=== PATIENT | female | born 1950 | race Caucasian/White ===

== ENCOUNTER 2022-09-02 06:07 | Emergency (ER) | payer MEDICARE, MEDICAID, SELFPAY ==
--- NOTE | ~2022-09-02 | CT_ITS ---
EXAMINATION: CT HEAD WITHOUT CONTRAST CLINICAL INFORMATION: Vertigo COMPARISON: CT head from 04/14/2006 TECHNIQUE: Contiguous axial imaging was performed from the skull base to vertex without intravenous administration of contrast. This CT examination was performed using dose optimization techniques as appropriate, variously including the following: *Automated exposure control *Adjustment of mA and/or kV according to patient size (this includes techniques or standardized protocols for targeted exams where dose is matched to indication/reason for exam; i.e. extremities or head) *Use of iterative reconstruction technique DLP: 619 mGy-cm FINDINGS: There is no evidence of acute intracranial hemorrhage or territorial infarction. No abnormal mass effect or midline shift is seen. Lou to white matter differentiation is well preserved. No extra-axial fluid collections are identified. The ventricles are normal in size. There is no abnormal attenuation within the brain parenchyma. Mild nodular osseous thickening along the inner table of the right frontal bone, nonspecific. The osseous structures and soft tissues are normal. The mastoid air cells and visualized portions of the paranasal sinuses are well aerated. Vertebrobasilar atherosclerotic calcifications. CT/CT head/brain wo IV con IMPRESSION: No acute intracranial pathology.
[2022-09-02 06:13] VITALS: BP 182/83; PULSE 78; RESP 22; TEMP 36.7; O2SAT 98; BMI 27.8
[2022-09-02 06:35] LABS: MANUAL DIFF FLAG NO
[2022-09-02 06:37] LABS: Basophils Percent Auto 0.6 % (0-2); Eosinophils Absolute Auto 0.2 X10*3/uL (0.0-0.4); Eosinophils Percent Auto 2.6 % (0-4); Hematocrit 40.8 % (37.0-47.0); Hemoglobin 13.5 g/dl (12.0-16.0); Imm Gran Abs Auto 0.02 X10*3/uL (0.00-0.03); Imm Gran Pct Auto 0.3 % (0.0-0.4); Mean Corpuscular HGB Conc 33.1 g/dl (31.0-35.0); Mean Corpuscular Hemoglobin 27.3 pg (27.0-33.0); Mean Corpuscular Volume 82.6 fL (80.0-98.0); Mean Platelet Volume 9.6 fL (9.4-12.3); Monocytes Absolute Auto 0.5 X10*3/uL (0.1-1.2); Neutrophils Absolute Auto 3.8 x10*3/uL (2.0-8.3); Neutrophils Percent Auto 58.5 % (45-73); Platelet Count 191 X10*3/uL (160-400); Red Blood Count 4.94 X10*6/uL (4.20-5.50); Red Cell Distribution Width 11.9 % (11.0-16.0); White Blood Count 6.5 X10*3/uL (4.8-10.8)
--- OUTSIDE RECORDS SUMMARY | 2022-09-02 06:37 | XMS_ITS | Continuity of Care Document ---
Author Name Unknown Organization [facility] Address [address] [place] [address]- Care Team Providers Care Associate Music Professor Name Role Phone Jay BREWER, [facility] Primary Care Physician [place] [facility] [place] 11/19/21 - 12/23/[address] [address] Attending Physician: Magdalena Ho Admitting Physician: Magdalena oH Referring Physician: Magdalena Ho Allergies, Adverse Reactions, Alerts Substance Reaction Severity Status Novocain Active Medications amLODIPine 10 mg oral tablet 10 mg, 1, tablet, By Mouth, Daily, # 30 tablet, Refills 0, Maintenance, 08/06/19 14:14:00 EST Start Date: 08/06/19 Status: Ordered aspirin 81 mg oral delayed release tablet 81 mg, 1, tablet, By Mouth, Daily, # 30 tablet, Refills 0, Maintenance, 08/06/19 14:14:00 EST Start Date: 08/06/19 Status: Ordered atorvastatin 20 mg oral tablet 1 tablet = 20 mg, By Mouth, Daily, # 30 tablet, 0 Refills, Maintenance, 08/06/19 14:15:00 EST, Tablet Start Date: 08/06/19 Status: Ordered calcium (as carbonate and lactate)-vitamin D 200 mg-250 intl units oral tablet, chewable 1 tablet, 2 times a day, 0 Refills, Maintenance, 08/06/19 14:15:00 EST Start Date: 08/06/19 Status: Ordered Compression Stockings See Instructions, # 2 each, Refills 2, Tot. Refills 2, Maintenance, surgical, calf length 20-30 mm Hg dx: venous insufficiency, 08/06/19 14:30:00 EST, Compound Start Date: 08/06/19 Status: Ordered Fish Oil 1000 mg oral capsule 1 capsule = 1,000 mg, By Mouth, 2 times a day, 0 Refills, Maintenance, 08/06/19 14:16:00 EST Start Date: 08/06/19 Status: Ordered metFORMIN 1000 mg oral tablet 1 tablet = 1,000 mg, By Mouth, 2 times a day, # 60 tablet, 0 Refills, Maintenance, 08/06/19 14:14:00 EST, Tablet Start Date: 08/06/19 Status: Ordered Zofran 4 mg oral tablet 1 tablet = 4 mg, By Mouth, Every 8 hours, PRN Nausea & Vomiting, # 10 tablet, 0 Refills, Maintenance, 07/16/21 15:24:00 EST, Tablet, Partial fill upon patient request if the prescription is for aschedule II opioid drug. Start Date: 07/16/21 Status: Ordered Zofran 4 mg oral tablet 1 tablet = 4 mg, By Mouth, Every 8 hours, PRN Nausea & Vomiting, # 10 tablet, 0 Refills, Maintenance, 07/16/21 15:54:00 EST, Tablet, [facility], Partial fill upon patient request ifthe prescription is for a schedule II opioid drug., 159... Start Date: 07/16/21 Status: Ordered Problem List Condition Effective Dates Status Health Status Inform ant GERD (gastroesophageal reflu x disease)(Confirmed) Active HLD (hyperlipidemia)(Confirmed) Active HTN (hypertension)(Confirmed) Active Osteoporosis(Confirmed) Active Osteoarthritis of sacroiliac joint(Confirmed) Active Lung nodule, solitary(Confirmed) Active Hepatic steatosis(Confirmed) Active Type 2 diabetes mellitus(Confirmed) Active Varicose vein of leg(Confirmed) Active Social History Social History Type Response Smoking Status Never (less than 100 in lifetime) entered on: 08/06/19 Sex Female
--- OUTSIDE RECORDS SUMMARY | 2022-09-02 06:37 | XMS_ITS | Continuity of Care Document ---
Author Name Unknown Organization [facility] Address [address] [place] [address]- Care Team Providers Care Meter/Relay Technician Name Role Phone Jay BREWER, Gunjan [id number] [address] [place] [address] [facility] Attending Physician: Jhon Mejias MD Admitting Physician: Jhon Mejias MD Referring Physician: Gunjan Thompson MD Allergies, Adverse Reactions, Alerts Substance Reaction Severity Status Novocain Active Medications alendronate 70 mg oral tablet 1 tablet = 70 mg, By Mouth, Every week, # 12 tablet, 0 Refills, Maintenance, 08/06/19 14:16:00 EST,Tablet Start Date: 08/06/19 Status: Ordered amLODIPine 10 mg oral tablet 10 mg, [...] EST, Compound Start Date: 08/06/19 Status: Ordered Cyclopentolate 2% Ophth Once, 0 Refills, Maintenance, 08/06/19 14:14:00 EST Start Date: 08/06/19 Status: Ordered esomeprazole 20 mg oral delayed release tablet 1 tablet = 20 mg, By Mouth, Daily in AM, 0 Refills, Maintenance, 08/06/19 14:16:00 EST Start Date: 08/06/19 Status: Ordered Fish Oil [...] EST, Tablet Start Date: 08/06/19 Status: Ordered rOPINIRole 0.5 mg oral tablet 1 tablet = 0.5 mg, By Mouth, 3 times a day, 0 Refills, Maintenance, 08/06/19 14:16:00 EST Start Date: 08/06/19 Status: Ordered Salonpas Gel-Patch 0.025% topical film 1 patch, Topically, 2 times a day, # 28 patch, 0 Refills, Maintenance, 09/03/19 9:02:00 EDT, Film Start Date: 09/03/19 Stop Date: 09/17/19 Status: Ordered Problem List Condition Effective Dates [...]
--- OUTSIDE RECORDS SUMMARY | 2022-09-02 06:37 | XMS_ITS | Continuity of Care Document ---
Author Name Unknown Organization [facility] Address [address] [address]- Care Team Providers Care Director Immunology Name Role Phone Jay BREWER, Gnujan Primary Care Physician Encounter [facility] [place] Date(s): 10/22/20 - 11/21/20 [facility] [address] [place] [address] Attending Physician: Shahab Hernandez Admitting Physician: AdmtrShahab Referring Physician: AdmtrShahab Allergies, Adverse Reactions, Alerts Substance Reaction Severity [...] 14:14:00 EST Start Date: 08/06/19 Status: Ordered Fish [...] EST, Tablet Start Date: 08/06/19 Status: Ordered Salonpas Gel-Patch [...]
--- OUTSIDE RECORDS SUMMARY | 2022-09-02 06:37 | XMS_ITS | Continuity of Care Document ---
Author Name Unknown Organization Unknown Insurance Providers Payer Name Policy type / Coverage type Policy ID Covered Democrat ID Policy [facility] (2013 - ) [id number] Mary Pickens
--- OUTSIDE RECORDS SUMMARY | 2022-09-02 06:37 | XMS_ITS | Continuity of Care Document ---
Author Name Unknown Organization [facility] Address [address] [place] [address], [address] [place] [address]- Care Team Providers Care Attorney At Law Name Role Phone Jay BREWER, Gunjan Primary Care Physician En[facility] [place] Date(s): 04/14/20 - 05/14/20 [facility] [address] [facility], [address]th [place] [address]- Attending Physician: Shahab Hernandez Admitting Physician: Shahab Hernandez Referring Physician: AdmtrShahab Allergies, Adverse Reactions, Alerts [...]
--- OUTSIDE RECORDS SUMMARY | 2022-09-02 06:37 | XMS_ITS | Continuity of Care Document ---
Author Name Unknown Organization [facility] Address [address] [place] [address]- Care Team Providers Care Net Developer Contract Name Role Phone Jay BREWER, Gunjan Primary Care Physician Encounter [facility] [place] Date(s): 02/29/20 - 03/30/20 [facility] [address] [place] [address]- [facility] Attending Physician: Shahab Hernandez Admitting Physician: AdmtrShahab [...]
--- OUTSIDE RECORDS SUMMARY | 2022-09-02 06:37 | XMS_ITS | Continuity of Care Document ---
Author Name Unknown Organization [facility] Address [address] [place] [address], [address] [place] [address]- Care Team Providers Care Industrial Radiographer Name Role Phone Gunjan Thompson MD Primary Care Physician En[place] [facility] [place] Date(s): 09/25/19 - 01/23/20 [facility] [address] [facility], [address] [place] [address]- [facility] Attending Physician: Melissa Davenport MD Referring Physician: Gunjan Thompson MD Allergies, [...]
--- OUTSIDE RECORDS SUMMARY | 2022-09-02 06:37 | XMS_ITS | Continuity of Care Document ---
Author Name Unknown Organization [facility] Address [address] [place] [address]- Care Team Providers Care Saas Architect Name Role Phone Jay BREWER, Gunjan Primary Care Physician En[place] [facility] [place] Date(s): 11/09/19 - 12/09/19 [facility] [address] [place] [address]- [facility] Attending Physician: Shahab Hernandez Admitting Physician: AdmShahab barber Referring Physician: AdmtrShahab Allergies, Adverse Reactions, Alerts [...]
--- OUTSIDE RECORDS SUMMARY | 2022-09-02 06:37 | XMS_ITS | Continuity of Care Document ---
Author Name Unknown Organization [facility] ter Address [address] [place] [address]- Care Team Providers Care Pattern And Chain Maker Name Role Phone Jay BREWER, Gunjan Primary Care Physician En[place] [facility] [place] Date(s): 11/04/20 - 12/06/[address] [address] Attending Physician: Lee Villalta MD Admitting Physician: Lee Villalta MD Referring Physician: Lee Villalta MD Allergies, Adverse Reactions, Alerts Substance Reaction [...]
--- OUTSIDE RECORDS SUMMARY | 2022-09-02 06:37 | XMS_ITS | Continuity of Care Document ---
Author Name Unknown Organization [facility] Address [address] [place] [address]- Care Team Providers Care Spinner Tender Name Role Phone Jay BREWER, Gunjan Primary Care Physician [place] [facility] [place] Date(s[place] 08/12/20 - 09/26/[address] [address] Attending Physician: Magdalena Ho Admitting Physician: Magdalena Ho Referring Physician: Magdalena Ho Allergies, Adverse Reactions, [...]
--- OUTSIDE RECORDS SUMMARY | 2022-09-02 06:37 | XMS_ITS | Continuity of Care Document ---
Author Name Unknown Organization [facility] ter Address [address] [place] [address]- Care Team Providers Care Service Order Clerk Name Role Phone Jay BREWER, Gunjan Primary Care Physician [place] [facility] [place](s): 09/03/19 - 09/10/[address] [address]- [facility] Discharge Disposition: A-D/C Home Attending Physician: Veda Garcia MD Admitting Physician: Malcom Ratliff MD Referring Physician: Not on Staff, Referring MD Allergies, Adverse Reactions, Alerts Substance Reaction [...] 14:16:00 EST Start Date: 08/06/19 Status: Ordered GuaiFENesin DM 10 mg-100 mg/5 mL oral liquid 5 mL, By Mouth, Every 4 hours, PRN Cough, for 7 days, # 240 mL, 0 Refills, Acute 09/17/19 11:06:00 EDT, 09/10/19 11:06:00 EDT, [facility], 5 mL By Mouth Every 4 hours,x7 days,PRN:Cough,159, cm, 09/08/19 13:30:00 EDT, Height, 72, kg, 03/... Start Date: 09/10/19 Stop Date: 09/17/19 Status: Ordered metFORMIN 1000 mg oral tablet [...] mellitus(Confirmed) Active Varicose vein of leg(Confirmed) Active Results Radiology Reports * Exam Date Time Procedure Performing Provider Status 09/08/19 12:55 PM Chest Portable Archambeau, Rachael; Auth (Verified) Notes: (Chest Portable) Reason For Exam: Cough RESULT: Chest Portable Chest Portable 09/08/2019 Reason: Cough; Clinical Question(s): ARDS; Hx of Present Illness: pt states she has been feeling SOB, body aches, fever, cough and generally not well x 1 week.; Other Objective Findings: Pt is tachypnic, pale, increased WOB 033{ fonttbl{ f0 fnil fcharset0 Segoe UI;}} viewkind4 uc1 pard f0 fs20 Pt is tachypnic, pale, increased WOB par } COMPARISON: 09/06/19 and 09/03/2019 FINDINGS: LINES AND TUBES: None. LUNGS AND PLEURA: Further development of patchy interstitial and airspace infiltrates, particularly involving right mid and upper lung, right lower lung and left lower lung. Stable small left pleural effusion. No pneumothorax. HEART, MEDIASTINUM AND RAYNE: Heart is normal in size. Normal mediastinal and hilar contour. BONES AND SOFT TISSUES: No acute abnormality. IMPRESSION: Further development of patchy interstitial and airspace infiltrates, particularly involving right mid and upper lung, right lower lung and left lower lung. Small left pleural effusion. WSN: [id number] Ordering Physician: Veda Garcia Dictated By: Daija Davenport MD, I Dictated Date/Time: 09/08/19 1:26 pm Reviewed By: Daija Davenport MD, I Signed By: Daija Davenport MD, I Signed Date/Time: 09/08/19 1:26 pm Transcribed By: MATT Transcribed Date/Time: 09/08/19 1:22 pm * Exam Date Time Procedure Performing Provider Status 09/06/19 2:34 PM Chest Portable Jed , Kerrie; Auth (Ve rified) Notes: (Chest Portable) Reason For Exam: Cough RESULT: Chest Portable Chest Portable Reason: Cough; Clinical Question(s): ARDS; Hx of Present Illness: pt states she has been feeling SOB, body aches, fever, cough and generally not well x 1 week. COMPARISON: 09/03/2019 at 4:53 PM. FINDINGS: LINES AND TUBES: None. LUNGS AND PLEURA: Interval worsening of bilateral interstitial and airspace opacities with lower lung predominance. No pleural effusion. No pneumothorax. HEART, MEDIASTINUM AND RAYNE: Heart is normal in size. Normal mediastinal and hilar contour. BONES AND SOFT TISSUES: No acute abnormality. IMPRESSION: Worsening interstitial and air space opacities consistent with atypical/viral pneumonia and/or developing ARDS. WSN: [id number] Ordering Physician: Veda Garcia Dictated By: Yosef Parikh MD Dictated Date/Time: 09/06/19 2:42 pm Reviewed By: Yosef Parikh MD Signed By: Yosef Parikh MD Signed Date/Time: 09/06/19 2:42 pm Transcribed By: MATT Transcribed Date/Time: 09/06/19 2:36 pm * Exam Date Time Procedure Performing Provider Status 09/03/19 5:31 PM Chest Portable Kibe , Thais; Auth (Ve rified) Notes: (Chest Portable) Reason For Exam: Shortness of Breath RESULT: Chest Portable AP upright portable chest dated September 03, 2019 at 1659 hours. Comparison films are from today at 0501 hours. HISTORY: Shortness of breath. FINDINGS: The cardiac silhouette is within normal limits for size. Mural calcifications are presentin the aorta. There are mild increased interstitial markings bilaterally. Some mild vascular prominence is noted. Slightly more focal airspace consolidation is present at the lung bases left greater than right. There are bilateral pleural effusions left greater than right. Visualized osseous structures are unremarkable. IMPRESSION: Interval worsening of bilateral interstitial and alveolar infiltrates with associated pleural effusions consistent with pneumonia. Examination [address]. Thank you for allowing me to participate in the care of this patient. WSN: [id number] Ordering Physician: Yosef Stephens Dictated By: Harris Roa MD Dictated Date/Time: 09/03/19 5:42 pm Reviewed By: Harris Roa MD Signed By: Harris Roa MD Signed Date/Time: 09/03/19 5:42 pm Transcribed By: MATT Transcribed Date/Time: 09/03/19 5:41 pm * Exam Date Time Procedure Performing Provider Status 09/03/19 5:10 AM Chest Portable Salo Shah; Nhi (Verified) Notes: (Chest Portable) Reason For Exam: Shortness of Breath RESULT: Chest Portable Chest Portable INDICATION: Dyspnea, body aches, fever, cough. COMPARISON: Chest x-ray 08/30/2019, 06/26/2019, 07/20/2015 FINDINGS: LINES AND TUBES: None. LUNGS AND PLEURA: Mildly accentuated interstitial markings and groundglass opacities bilaterally with peribronchovascular predominance slightly worsened. Unchanged 0.9 cm nodule at the left lung base. No pleural effusion. No pneumothorax. HEART, MEDIASTINUM AND RAYNE: Heart is normal in size. Normal mediastinal and hilar contour. BONES AND SOFT TISSUES: No acute abnormality. IMPRESSION: Mildly accentuated interstitial markings and groundglass opacities slightly worsened, may representviral/atypical pneumonia. 0.9 cm nodule at the left lung base, for which CT was previously recommended. Wet read provided via [employer] at 5:26 AM on 09/03/2019. I have personally reviewed the images and I agree with this report. WSN: [id number] Ordering Physician: Kym Hinson Dictated By: Jefferson Mejia DO Dictated Date/Time: 09/03/19 7:54 am Reviewed By: Tye Gagnon MD Signed By: Tye Gagnon MD Signed Date/Time: 09/03/19 7:59 am Transcribed By: MATT Transcribed Date/Time: 09/03/19 5:26 am Vital Signs Most recent to oldest [Reference Range]: 1 2 3 Height 159 cm (09/08/19 1:30 PM) 159 cm (09/08/19 10:14 AM) 159 cm (09/07/19 4:10 AM) Weight 72 kg (09/03/19 9:26 AM) Oxygen Saturation [94-100 %] 95 % (09/10/19 8:00 AM) 96 % (09/10/19 4:00 AM) 94 % (09/09/19 8:00 PM) Pulse Rate [55-90 bpm] 96 bpm *H* (09/10/19 8:00 AM) 78 bpm (09/09/19 4:00 AM) 78 bpm (09/08/19 9:00 PM) Body Mass Index [18.5-24.99] 28.48 *H* (09/03/19 9:26 AM) Blood Pressure [90-138/55-84 mm Hg] 152/72mm Hg *H* (09/10/19 10:24 AM) 152/72mm Hg *H* (09/10/19 8:00 AM) 121/68mm Hg (09/10/19 4:00 AM) Respiratory Rate [16-30 br/min] 18 br/min (09/10/19 8:00 AM) 18 br/min (09/10/19 4:00 AM) 17 br/min (09/09/19 8:00 PM) Temperature [96.8-100.4 DegF] 97.6 DegF (09/10/19 8:00 AM) 98.2 DegF (09/10/19 4:00 AM) 97.9 DegF (09/09/19 8:00 PM) Liters per Minute 2 L/min (09/09/19 3:00 PM) 2 L/min (09/09/19 9:26 AM) 2 L/min (09/09/19 4:00 AM) Mode of Delivery (Oxygen) Room air (09/10/19 8:00 AM) Room air (09/10/19 4:00 AM) Room air (09/09/19 8:00 PM) Blood pressure sites Arm, right (09/10/19 4:00 AM) Arm, right (09/09/19 8:00 PM) Arm, right (09/09/19 3:00 PM) Temperature Route Oral (09/10/19 8:00 AM) Oral (09/10/19 4:00 AM) Oral (09/09/19 8:00 PM) Dry Weight 72 kg (09/03/19 9:26 AM) Weight Obtained Via Bed scale (09/03/19 9:26 AM) Dry Weight Obtained Via Bed scale (09/03/19 9:26 AM) Sensory deficits None (09/03/19 9: AM) Mobility assistance Independent (09/03/19 9:26 AM) Social History Social History Type Response Smoking Status Never (less than 100 in lifetime) entered on: 08/06/19 Sex Female
--- OUTSIDE RECORDS SUMMARY | 2022-09-02 06:37 | XMS_ITS | Continuity of Care Document ---
Author Name Unknown Organization [facility] Address [address] [place] [address]- Care Team Providers Care Sub Prior Name Role Phone Gunjan Thompson MD Primary Care Physician [place] [facility] [place] Date(s): 08/06/19 - 08/13/19 [facility] [address] [place] [address]- [facility] Attending Physician: Jhon Mejias MD Admitting Physician: [...] EST Start Date: 08/06/19 Status: Ordered Salonpas 0.025%-1.25% topical film 1 patch, Topically, 3 times a day, 0 Refills, Maintenance, 08/06/19 14:14:00 EST Start Date: 08/06/19 Status: Ordered vitamin E dl-alpha 400 iu oral capsule 0 Refills, Maintenance, 08/06/19 14:15:00 EST Start Date: 08/06/19 Status: Ordered Vital Signs Most recent to oldest [Reference Range]: 1 Height 157.48 cm (08/06/19 2:12 PM) Weight 72 kg (08/06/19 2:12 PM) Body Mass Index [18.5-24.99] 29.03 *H* (08/06/19 2:12 PM) Blood Pressure [90-138/55-84 mm Hg] 132/ 60mm Hg (08/06/19 2:12 PM) Blood pressure sites Arm, left (08/06/19 2:12 PM) Weight Obtained Via Patient/family state d (08/06/19 2:12 PM) Social History Social History Type Response Smoking Status Never (less than 100 in lifetime) entered on: 08/06/19 Sex Female
--- OUTSIDE RECORDS SUMMARY | 2022-09-02 06:37 | XMS_ITS | Continuity of Care Document ---
Author Name Unknown Organization [facility] ter Address [address] [place] [address]- Care Team Providers Care Registered Nurse Obstetrics Name Role Phone Gunjan Thompson MD Primary Care Physician Encounter [facility] [place] Date(s): 06/22/19 - 06/29/[address] [address]- [facility] Attending Physician: Gunjan Thompson MD Allergies, Adverse Reactions, Alerts Substance Reaction Severity Status Novocain Active
--- OUTSIDE RECORDS SUMMARY | 2022-09-02 06:37 | XMS_ITS | Continuity of Care Document ---
Author Name [facility] Address [address] [place] [address], [address] [address]- Care Team Providers Care Functional Manager Name Role Phone Jay BREWER, Gunjan Primary Care Physician [place] [facility] [place] Date(s[place] 01/15/20 - [facility]14/[facility] [address] [facility], [address] [place], [place] [address] Attending Physician: Gabby Lacy MD Referring Physician: Gunjan Thompson MD Allergies, [...]
--- OUTSIDE RECORDS SUMMARY | 2022-09-02 06:37 | XMS_ITS | Continuity of Care Document ---
Author Name Unknown Organization [facility] Address [address] [place] [address]- Care Team Providers Care Supervisor Quilting Name Role Phone Jay BREWER, Gunjan Primary Care Physician En[facility] Date(s): 05/26/21 - 05/26/[address] [address] Discharge Disposition: A-D/C Home Attending Physician: Susan Duran MD Admitting Physician: Susan Duran MD Referring Physician: Susan Duran MD Allergies, Adverse Reactions, Alerts Substance Reaction [...] EST, Tablet Start Date: 08/06/19 Status: Ordered Problem List Condition Effective Dates Status Health Status Inform ant GERD (gastroesophageal reflu x disease)(Confirmed) Active HLD (hyperlipidemia)(Confirmed) Active HTN (hypertension)(Confirmed) Active Osteoporosis(Confirmed) Active Osteoarthritis of sacroiliac joint(Confirmed) Active Lung nodule, solitary(Confirmed) Active Hepatic steatosis(Confirmed) Active Type 2 diabetes mellitus(Confirmed) Active Varicose vein of leg(Confirmed) Active Vital Signs Most recent to oldest [Reference Range]: 1 2 3 Weight 71.0 kg (05/26/21 2:06 PM) Oxygen Saturation [94-100 %] 100 % (05/26/21 4:15 PM) 98 % (05/26/21 2:30 PM) 98 % (05/26/21 2:22 PM) Pulse Rate [55-90 bpm] 71 bpm (05/26/21 2:06 PM) Blood Pressure [90-138/55-84 mm Hg] 164/74mm Hg *H* (05/26/21 4:15 PM) 137/64mm Hg (05/26/21 2:30 PM) 163/65mm Hg *H* (05/26/21 2:22 PM) Respiratory Rate [16-30 br/min] 13 br/min *L* (05/26/21 4:15 PM) 22 br/min (05/26/21 2:30 PM) 24 br/min (05/26/21 2:22 PM) Temperature [96.8-100.4 DegF] 98.1 DegF (05/26/21 4:15 PM) 99.0 DegF (05/26/21 2:06 PM) Liters per Minute 2 L/min (05/26/21 2:30 PM) 2 L/min (05/26/21 2:22 PM) Mode of Delivery (Oxygen) Room air (05/26/21 4:15 PM) Nasal cannula (05/26/21 2:30 PM) Nasal cannula (05/26/21 2:22 PM) Blood pressure sites Arm, right (05/26/21 2:06 PM) Temperature Route Temporal (05/26/21 4:15 PM) Temporal (05/26/21 2:06 PM) Dry Weight 71.0 kg (05/26/21 2:06 PM) Weight Obtained Via Standing scale (05/26/21 2:06 PM) Dry Weight Obtained Via Standing scale (05/26/21 2:06 PM) Social History Social History Type Response Smoking Status Never (less than 100 in lifetime) entered on: 08/06/19 Sex Female
--- OUTSIDE RECORDS SUMMARY | 2022-09-02 06:37 | XMS_ITS | Continuity of Care Document ---
Author Name Unknown Organization [facility] Address [address] [place] [id number] Care Team Providers Care [employer] Name Role Phone Jatin Thompson MD Primary Care Physician Encounter [facility] [place] R [id number] Date(s): 12/12/21 - 04/11/22 [facility] [address] [place] [id number] Attending Physician: Leela Soriano MD Admitting Physician: Leela Soriano MD Referring Physician: Jatin Thompson MD Allergies, Adverse Reactions, Alerts Substance [...] 0 Refills, Maintenance, 07/16/21 15:54:00 EST, Tablet, [facility], Partial fill upon patient request ifthe prescription is for a schedule II opioid drug., 159... Start Date: 07/16/21 Status: Ordered Problem List Condition Confirmation Course Effective Dates Status H ealth Status Informant GERD (gastroesophageal reflux disease) Confirmed Active HLD (hyperlipidemia) Confirmed Active HTN (hypertension) Confirmed Active Osteoporosis Confirmed Active Osteoarthritis of sacroiliac joint Confirmed Active Lung nodule, solitary Confirmed Active Hepatic steatosis Confirmed Active Type 2 diabetes mellitus Confirmed Active Varicose vein of leg Confirmed Active Social History Social History Type Response Smoking Status Never (less than 100 in lifetime) entered on: 08/06/19 Sex Female Patient Care team information Personnel Name: Jatin Thompson MD Address: Address: [address] [place] [address] Jatin Thompson MD [address]
[2022-09-02 06:46] LABS: D Dimer High Sensitivity 176 NG/ML
[2022-09-02 07:14] VITALS: BP 154/68; PULSE 66; RESP 18; O2SAT 98
[2022-09-02 07:22] LABS: Glucose, Whole Blood 166 mg/dL (60-115)
--- NOTE | 2022-09-02 07:43 | ECG_ITS ---
Test Reason : chest pain Blood Pressure : / mmHG Vent. Rate : 065 BPM Atrial Rate : 065 BPM P-R Int : 144 ms QRS Dur : 088 ms QT Int : 388 ms P-R-T Axes : 045 065 075 degrees QTc Int : 403 ms Normal sinus rhythm Normal ECG No previous ECGs available Referred By: Oscar Powell Electronically Signed By:JOHNNIE DELONG
[2022-09-02 07:51] VITALS: BP 146/67
--- NOTE | 2022-09-02 07:53 | ED_ITS ---
HPI - General Adult General Chief complaint: Dizziness Stated complaint: high BP Time Seen by Provider: 09/02/22 07:43 Source: patient Mode of arrival: ambulatory Limitations: no limitations History of Present Illness HPI narrative: 72-year-old female presents with headache and dizziness. Symptoms started last night. Associated with elevated blood pressure with a systolic in the 180s. Patient has dizziness that is moderate to severe. There is no clear relieving or exacerbating features. She describes as the sensation of movement. Associated with nausea but no vomiting. She also complains of a left-sided headache. Spine her left eye. She has a history of left eye blindness. Her there are no new vision changes. The headache is moderate in nature. The headache does not radiate. It is not sudden onset. There is no neck pain or neck stiffness. There is no focal neurologic deficits. Related Data Previous Rx's Medication Instructions Recorded naproxen 375 mg tablet,delayed 375 mg PO Q12H PRN pain #7 tabs 09/02/22 release (EC-Naprosyn) ondansetron 4 mg disintegrating 4 mg PO Q8H PRN nausea and 09/02/22 tablet vomiting #10 tabs Allergies Allergy/AdvReac Type Severity Reaction Status Date / Time procaine [From Novocain] Allergy Hypertensio Verified 09/02/22 06:22 n PMFSH Social History Social History Smoked in Last 30 Days: No Use of substances other than those prescribed or required for medical reasons: No Advance Directives: Yes Advance Directives Information Provided: Yes Advance Directives on File: No Physical Exam ED Vital Signs: Vital Signs - 24 hr 09/02/22 06:13 09/02/22 07:14 09/02/22 07:51 Temperature 98.0 F Pulse Rate 78 66 Respiratory Rate 22 H 18 Blood Pressure 182/83 H 154/68 H 146/67 H Pulse Oximetry 98 98 Oxygen Delivery Method Room Air Room Air 09/02/22 08:16 09/02/22 10:14 Temperature Pulse Rate 70 63 Respiratory Rate 16 15 Blood Pressure 157/73 H 144/68 H Pulse Oximetry 98 97 Oxygen Delivery Method Room Air Room Air BMI result Body Mass Index 27.8 GEN: Well developed, no acute distress, alert, oriented HEENT: Normocephalic, atraumatic, normal external ears, nose appears normal, no oropharyngeal edema or exudates Eyes: Normal to appearance Neck: Supple, no lymphadenopathy Respiratory: Talks in complete sentences, no respiratory distress, clear to auscultation bilaterally Cardiovascular: Regular rate and rhythm, no murmurs rubs or gallops Abdomen: Soft, nontender, nondistended, no guarding, no rebound Back: No CVA tenderness Extremities: No clubbing cyanosis or edema Neurologic: No focal neurologic deficits, cranial nerves 2-12 intact, strength is 5/5 bilaterally, gait normal Skin: No rash Course Course Course Narrative: 72-year-old female presents with elevated blood pressure, left-sided headache, dizziness and nausea. Upon my evaluation, there are no acute abnormal findings. She denies any chest pain or shortness of breath. I will obtain an EKG, CT scan of the head, routine laboratory analysis. Patient will have frequent re- evaluations. Will provide patient with IV fluids, Reglan and meclizine. Reevaluation(s) Reevaluation #1: Discussed all results with patient and daughter. Patient is feeling much better. Would like to be discharged at this time. Time: 11:27 Medications Administered Discontinued Medications Generic Name Dose Route Start Last Admin Trade Name Freq PRN Reason Stop Dose Admin Sodium Chloride 1,000 mls @ 999 mls/hr 09/02/22 08:00 09/02/22 09:26 Ns IV 09/02/22 09:00 Infused .Q1H1M RAFFI Infusion Ketorolac Tromethamine 15 mg 09/02/22 10:35 09/02/22 10:53 Ketorolac Tromethamine 15 Mg/Ml Vial IVPUSH 09/02/22 10:36 15 mg ONCE ONE Administration Meclizine HCl 25 mg 09/02/22 07:50 09/02/22 08:08 Meclizine Hcl 25 Mg Tablet PO 09/02/22 07:51 25 mg ONCE ONE Administration Metoclopramide HCl 10 mg 09/02/22 07:50 09/02/22 08:08 Metoclopramide Hcl 10 Mg/2 Ml Vial IVPUSH 09/02/22 07:51 10 mg ONCE ONE Administration Medical Decision Making Medical Decision Making MDM Narrative: Patient presents with headache, dizziness and elevated blood pressure. Examination is benign. Blood pressures come down without acute intervention. Differential diagnosis for headache includes mass effect, hypertensive urgency, migraine headache, tension headache, sinus headache. Will obtain a CT scan to rule out other processes such as mass effect, intracranial bleeding, subdural hematoma although I doubt this. There has been no trauma. There is no sudden onset symptoms to suggest subarachnoid hemorrhage can not. She has no neck pain or stiffness. Doubt meningitis she has no fever, neck pain or stiffness. Will provide patient with analgesics, antiemetics, anteverted Radha medication and re-evaluate patient. Differential Diagnosis Differential Diagnoses: The differential diagnosis associated with the presentation includes (Tension headache, migraine headache, sinus headache, hypertensive urgency) Admission/Observation Consideration of admission/observation: Escalation of care including admission/observation considered Lab Data MDM Lab Attestation statement: I reviewed the patient's lab results. 09/02/22 06:30 09/02/22 06:30 Labs: Lab Results 09/02/22 09/02/22 09/02/22 Range/Units 06: 06:30 07:18 WBC 6.5 (4.8-10.8) X10*3/uL RBC 4.94 (4.20-5.50) X10*6/uL Hgb 13.5 (12.0-16.0) g/dl Hct 40.8 (37.0-47.0) % MCV 82.6 (80.0-98.0) fL MCH 27.3 (27.0-33.0) pg MCHC 33.1 (31.0-35.0) g/dl RDW 11.9 (11.0-16.0) % Plt Count 191 (160-400) X10*3/uL MPV 9.6 (9.4-12.3) fL Immature Gran % (Auto) 0.3 (0.0-0.4) % Neut % (Auto) 58.5 (45-73) % Lymph % (Auto) 31.0 (20-40) % [place] % (Auto) 7.0 (2-11) % Eos % (Auto) 2.6 (0-4) % Baso % (Auto) 0.6 (0-2) % Lymph # (Auto) 2.0 (1.2-4.9) X10*3/uL [place] # (Auto) 0.5 (0.1-1.2) X10*3/uL Eos # (Auto) 0.2 (0.0-0.4) X10*3/uL Baso # (Auto) 0.0 (0.0-0.2) X10*3/uL Abs Immat Gran (auto) 0.02 (0.00-0.03) X10*3/uL Absolute Neuts (auto) 3.8 (2.0-8.3) x10*3/uL Absolute Nucleated RBC 0.000 (0.0-0.012) X10*3/uL Nucleated RBC % (auto) 0.0 (0.0-0.2) /100WBC D-Dimer High Sensitivty 176 NG/ML Sodium (135-145) mmol/L Potassium (3.3-5.1) mmol/L Chloride (96-108) mmol/L Carbon Dioxide (22-29) mmol/L Anion Gap (12-20) BUN (9-16) mg/dL Creatinine (0.5-1.4) mg/dL Estim Creat Clear Calc Estimated GFR POC Glucose 166 H (60-115) mg/dL Random Glucose (60-115) mg/dL Calcium (8.4-10.2) mg/dL Total Bilirubin (0.0-1.0) mg/dL AST (5-31) U/L ALT (0-31) U/L Alkaline Phosphatase (39-117) U/L Total Protein (6.5-8.0) g/dL Albumin (3.5-5.0) g/dL 09/02/22 Range/Units 09:22 WBC (4.8-10.8) X10*3/uL RBC (4.20-5.50) X10*6/uL Hgb (12.0-16.0) g/dl Hct (37.0-47.0) % MCV (80.0-98.0) fL MCH (27.0-33.0) pg MCHC (31.0-35.0) g/dl RDW (11.0-16.0) % Plt Count (160-400) X10*3/uL MPV (9.4-12.3) fL Immature Gran % (Auto) (0.0-0.4) % Neut % (Auto) (45-73) % Lymph % (Auto) (20-40) % [place] % (Auto) (2-11) % Eos % (Auto) (0-4) % Baso % (Auto) (0-2) % Lymph # (Auto) (1.2-4.9) X10*3/uL [place] # (Auto) (0.1-1.2) X10*3/uL Eos # (Auto) (0.0-0.4) X10*3/uL Baso # (Auto) (0.0-0.2) X10*3/uL Abs Immat Gran (auto) (0.00-0.03) X10*3/uL Absolute Neuts (auto) (2.0-8.3) x10*3/uL Absolute Nucleated RBC (0.0-0.012) X10*3/uL Nucleated RBC % (auto) (0.0-0.2) /100WBC D-Dimer High Sensitivty NG/ML Sodium 139 (135-145) mmol/L Potassium 4.1 (3.3-5.1) mmol/L Chloride 106 (96-108) mmol/L Carbon Dioxide 23 (22-29) mmol/L Anion Gap 14 (12-20) BUN 10 (9-16) mg/dL Creatinine 0.63 (0.5-1.4) mg/dL Estim Creat Clear Calc 74.5 Estimated GFR > 60 POC Glucose (60-115) mg/dL Random Glucose 185 H (60-115) mg/dL Calcium 8.1 L (8.4-10.2) mg/dL Total Bilirubin 1.4 H (0.0-1.0) mg/dL AST 15 (5-31) U/L ALT 17 (0-31) U/L Alkaline Phosphatase 104 (39-117) U/L Total Protein 5.8 L (6.5-8.0) g/dL Albumin 3.8 (3.5-5.0) g/dL Independent Interpretation I performed an independent interpretation of an: EKG (Normal sinus rhythm heart rate 65, normal intervals, no acute ST elevations depressions) and CT Scan ( CT/CT head/brain wo IV con IMPRESSION: No acute intracranial pathology. Dictated By:Larry Ramos MDSigned By:<Electronically signed by Larry Ramos MD in OV>09/02/22 0906 DD/ [id number]/TT: Photo Printer:) Radiology Impression Discussion of test interpretation with radiology: I have reviewed the radiologist's reading. Prescription Management I considered prescription management with: Pain Medication Chronic Conditions Patient?s care impacted by: Hypertension Discharge Plan Discharge Clinical Impression: Headache, Dizziness Patient Disposition: Home, Self-Care Instructions: Acute Headache (DC), Dizziness (ED) Prescriptions: New naproxen [EC-Naprosyn] 375 mg tablet,delayed release (DR/EC) 375 mg PO Q12H PRN (Reason: pain) Qty: 7 0RF ondansetron 4 mg tablet,disintegrating 4 mg PO Q8H PRN (Reason: nausea and vomiting) Qty: 10 0RF Referrals: Physician,Unknown J [Primary Care Provider] - 5 days
[2022-09-02] MEDS: Meclizine HCl 25 MG TABLET PO (08:08)
[2022-09-02] MEDS: Metoclopramide HCl 10 MG/2 ML VIAL IVPUSH (08:08)
[2022-09-02] MEDS: 0.9 % Sodium Chloride 1,000 ML 999 ML IV (08:08)
[2022-09-02 08:16] VITALS: BP 157/73; PULSE 70; RESP 16; O2SAT 98
--- NOTE | 2022-09-02 08:19 | PC.NURSE ---
Pt is alert/oriented. Reports waking up with elevated SBP 188, unable to decrease at home with associated left sided eye/head pain and dizziness. 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 Neuros are intact. States appt today with retinologist at 0845. Nausea with sm amt of vomiting. NSR on tele. IV est and medicated as charted. Awaiting CT scan.
[2022-09-02 10:05] LABS: Anion Gap 14 (12-20)
[2022-09-02 10:09] LABS: Alanine Aminotransferase 17 U/L (0-31); Albumin Level 3.8 g/dL (3.5-5.0); Alkaline Phosphatase 104 U/L (39-117); Aspartate Amino Transferase 15 U/L (5-31); Bilirubin Total 1.4 mg/dL (0.0-1.0); Blood Urea Nitrogen 10 mg/dL (9-16); Calcium 8.1 mg/dL (8.4-10.2); Carbon Dioxide 23 mmol/L (22-29); Chloride 106 mmol/L (96-108); Creatinine Clr Calc Pharmacy 74.5; Estimated Glomerular Filt Rate > 60; Glucose Random 185 mg/dL (60-115); Potassium 4.1 mmol/L (3.3-5.1); Sodium 139 mmol/L (135-145); Total Protein 5.8 g/dL (6.5-8.0)
[2022-09-02 10:14] VITALS: BP 144/68; PULSE 63; RESP 15; O2SAT 97
[2022-09-02] MEDS: Ketorolac Tromethamine 15 MG/ML VIAL IVPUSH (10:53)
--- NOTE | 2022-09-02 10:55 | PC.NURSE ---
Pt medicated for persistent left sided headache. States nausea persist with mild dizziness.
== END 2022-09-02 11:42 | disposition home or self-care (01) ==
PROVIDERS: Emergency Provider Emergency Medicine
DX: R07.89 Other chest pain (principal); R51.9 Headache, unspecified; R03.0 Elevated blood-pressure reading, without diagnosis of hypertension; Z79.899 Other long term (current) drug therapy
CPT/HCPCS: 36415; 70450; 80053; 82947; 85025; 85379; 93005; 96361; 96374; 96375; 99284; 99285; J1885; J2765